=== PATIENT | female | born 1995 | race African-American/Black ===

== ENCOUNTER 2019-06-10 06:00 | Emergency (ER) | payer BC, SELFPAY ==
--- NOTE | ~2019-06-10 | XR_ITS ---
EXAMINATION: XR chest 2V DATE: 06/10/2019 06:30 INDICATION: Shortness of breath. Chest tightness. TECHNIQUE: Frontal and lateral views of the chest were obtained. COMPARISON: Chest 2 views 02/08/2015, chest CT 02/08/2015 FINDINGS: The chest demonstrates clear lungs without pneumonia, pleural effusion, or pneumothorax. Th e heart size is normal. IMPRESSION: 1. No acute cardiopulmonary disease. Reviewed, dictated and finalized at location A.
[2019-06-10 06:07] VITALS: BP 128/70; PULSE 74; RESP 10; TEMP 36.8; O2SAT 100
--- NOTE | 2019-06-10 06:18 | ECG_ITS ---
Measurements Intervals [place] Rate: 72 P: 36 AR: 134 QRS: 17 QRSD: 74 T: 24 QT: 364 QTc: 400 Interpretive Statements SINUS RHYTHM BASELINE ARTIFACT- I, II, AVR, AVL NORMAL ECG Electronically Signed On 06-10-2019 7:05:49 CDT by Alexandru Zamorano D.O.
--- NOTE | 2019-06-10 06:36 | ED.DIZZY ---
HPI - Dizziness General Chief Complaint: Dizziness Stated Complaint: diff breathing Time Seen by Provider: 06/10/19 06:22 Source: patient Mode of arrival: EMS Limitations: no limitations History of Present Illness HPI Narrative: Patient is a 23-year-old female who presents to the emergency department with complaint of dizziness and chest pain. Patient states symptoms started last night and she was unable to sleep. She complains of pain in her chest and in her back. She states she feels dizzy. She states she has noticed palpitations and difficulty breathing. Patient has history of seasonal allergies and tried using her inhaler see if that would help with her difficulty breathing at night. Patient does report feeling anxious recently. She also reports being on Macrobid currently for a possible UTI. MD elicited complaint: dizziness Onset (ago): hour(s) Timing: constant Description: lightheadedness and near-syncope Context: anxiety Relieving factors: nothing Associated symptoms: chest pain Related Data Allergies Allergy/AdvReac Type Severity Reaction Status Date / Time peanut Allergy Severe Unknown Unverified 06/10/19 06:17 strawberry Allergy Severe Unknown Unverified 06/10/19 06:17 Review of Systems Review of Systems: All systems reviewed & are unremarkable except as noted in HPI and below Constitutional: Constitutional: Reports fever(s) (2 weeks ago, resolved) ENT: Reports dysphagia Cardiovascular: Cardiovascular: Reports chest pain and Reports rapid heart rate Respiratory: Respiratory: Denies cough and Reports dyspnea Neurologic: Reports dizziness PMFSH Past Medical History Medical History (Updated 06/10/19 @ 08:03 by Angi Borrero MD) Seasonal allergies Surgical History Surgical History (Updated 06/10/19 @ 06:39 by Angi Borrero MD) History of knee surgery Reports multiple Social History Social History (Updated 06/10/19 @ 06:39 by Angi Borrero MD) Smoking status: Never smoker Exam Const: General: cooperative, no acute distress and alert Nutritional Appearance: well nourished Orientation/consciousness: patient oriented x3 Limitations: no limitations HENMT: Mouth: Yes lip normal and Yes moist mucous membranes Throat: posterior oropharynx normal Resp: Effort & Inspection: normal respiratory effort Auscultation: clear to auscultation bilaterally Cardio: Rate: regular rate Rhythm: regular rhythm GI: GI Palp: Yes Soft to palpation and No Tenderness to palpation present (GI) Auscultation: normal bowel sounds Skin: General skin exam: normal color Neuro: General: patient oriented x3 Cognition (Neuro): normal cognition Speech: normal speech Extrem: General: normal to inspection, full ROM and no clubbing, cyanosis or edema Psych: Mental Status: mental status grossly normal Affect: Anxious affect present Attitude: cooperative Course Course Emergency Course: Testing in the emergency department unremarkable. Vital signs normal. Patient currently on antibiotics for UTI. Urinalysis with findings of contamination and minimal pyuria. Patient has urine culture pending at [facility]. Patient reports she was tested for STDs as well. Advised drinking plenty of fluids and getting plenty of rest. Patient very anxious in appearance, but refused Ativan. Patient stable for outpatient management at this time and does not have any findings suggesting need for further treatment in the emergency department. Will refer to on-call primary care physician. Vital Signs Vital signs: Vital Signs Temperature 98.3 F 06/10/19 06:07 Pulse Rate 74 06/10/19 06:07 Respiratory Rate 10 L 06/10/19 06:07 Blood Pressure 128/70 06/10/19 06:07 Pulse Oximetry 100 06/10/19 06:07 Temperature 98.3 F 06/10/19 06:07 Pulse Rate 82 06/10/19 07:53 Respiratory Rate 19 06/10/19 07:53 Blood Pressure 108/64 06/10/19 07:53 Pulse Oximetry 100 06/10/19 07:53 M
[2019-06-10 06:46] LABS: Basophils Absolute Auto 0.1 K/mm3 (0.0-0.1); Basophils Percent Auto 0.7 % (0.2-1.2); Eosinophils Absolute Auto 0.3 K/mm3 (0-0.3); Eosinophils Percent Auto 4.2 % (0-4.4); Hematocrit 31.6 % (37.0-47.0); Hemoglobin 9.1 g/dL (12.0-15.0); Immature Granulocyte Absolute 0.03 K/mm3 (0.00-0.031); Immature Granulocyte Percent A 0.4 % (0-0.5); Lymphocytes Absolute Auto 1.91 K/mm3 (0.9-3.2); Lymphocytes Percent Auto 23.7 % (18.3-44.2); Mean Corpuscular HGB Conc 28.8 g/dl (32-36); Mean Corpuscular Hemoglobin 22.8 pg (26-34); Mean Corpuscular Volume 79.2 fl (80-100); Mean Platelet Volume 9.5 fl (7.4-10.4); Monocytes Absolute Auto 0.6 K/mm3 (0.1-0.6); Neutrophils Absolute Auto 5.2 K/mm3 (1.3-6.7); Platelet Count Result 354 k/mm3 (150-375); Red Blood Count 3.99 M/mm3 (4.2-5.4); Red Cell Distribution Width 16.6 % (11.5-14.5); White Blood Count 8.1 K/mm3 (4.5-10.0)
[2019-06-10 06:56] LABS: Blood Urea Nitrogen 11 mg/dL (7-17); Calcium 9.3 mg/dL (8.4-10.2); Carbon Dioxide 25 mmol/L (22-30); Chloride 104 mmol/L (98-107); Estimated Glomerular Filt Rate > 60; Glucose 101 mg/dL (65-105); Potassium 3.3 mmol/L (3.4-5.0); Sodium 136 mmol/L (137-145)
[2019-06-10 07:02] VITALS: BP 115/80; BP 116/81; BP 123/80; PULSE 80; PULSE 88; PULSE 90
[2019-06-10 07:08] LABS: Troponin I < 0.012 ng/mL (0.000-0.034)
[2019-06-10 07:35] LABS: Add Urine Microscopic? YES; Appearance Urine Clear (Clear); Bacteria Urine Trace /hpf; Bilirubin Urine Negative (Negative); Blood Urine Negative (Negative); Color Urine Yellow (Yellow); Glucose Urine UA Negative (Negative); Ketones Urine 1+ mg/dL (Negative); Leukocyte Esterase Ur 1+ LEU/UL (Negative); Mucus Urine Heavy /lpf; Nitrate Urine Negative (Negative); Protein Urine 1+ mg/dL (Negative); Squamous Epithelial Cell Urine Many /hpf (Few); Urobilinogen Urine Negative mg/dL (<2.0)
[2019-06-10 07:53] VITALS: BP 108/64; PULSE 82; RESP 19; O2SAT 100
== END 2019-06-10 08:29 | disposition home or self-care (01) ==
PROVIDERS: Emergency Provider Emergency Medicine
DX: R42 Dizziness and giddiness (principal); R07.89 Other chest pain; F41.9 Anxiety disorder, unspecified
CPT/HCPCS: 36415; 71046; 80048; 81001; 84484; 85025; 87086; 87088; 93005; 99284